=== PATIENT | female | born 1935 | race Caucasian/White ===

== ENCOUNTER 2018-06-17 21:07 | Emergency (ER) | payer OTHER, MEDICAID ==
[~2018-06-17] VITALS: Ht 167.6 cm; Wt 54.4 kg
[2018-06-17] MEDS ORDERED: OCEAN104 ML NAS (21:28)
== END 2018-06-17 21:40 | disposition home or self-care (01) ==
LOC: ED 21:07
DX: R04.0 Epistaxis (principal); Z88.0 Allergy status to penicillin; Z88.1 Allergy status to other antibiotic agents; Z91.041 Radiographic dye allergy status; Z88.8 Allergy status to other drugs, medicaments and biological substances